=== PATIENT | female | born 2005 ===

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

== ENCOUNTER → 2025-02-16 00:32 | Outpatient (CLI) | payer BC, SELFPAY ==
--- NOTE | 2025-02-16 07:30 | DI.MRI_ITS ---
Exam(s) MR UPPER JOINT RT WO EXAM: MR UPPER JOINT RT WO CLINICAL HISTORY: Evaluate pathology,BICEPS TENDINITIS RT SHOULDER,M75.21. TECHNIQUE: Multiplanar multisequence MRI was performed. COMPARISON: No exams were available for comparison FINDINGS: BONES: There is marrow edema seen in the humeral head anteriorly and posteriorly. There is a linear hypointense signal in the posterior lateral humeral head and and depression best appreciated on the sagittal images (series 8001, image 8). The findings may represent a Hill-Sachs deformity. JOINTS: The acromioclavicular joint is normal. The glenohumeral joint is normal. There is a moderate size shoulder joint effusion. TENDONS: Supraspinatus: Unremarkable. There is an articular surface partial tear of the supraspinatus tendon. Infraspinatus: Unremarkable. Subscapularis: Unremarkable. Teres Minor: Unremarkable. Biceps and [place]: Unremarkable. MUSCLES: Unremarkable. GLENOID LABRUM: Findings suspicious for tear of the anterior inferior labrum. Arthrogram may be considered for further evaluation. SOFT TISSUES: Unremarkable. LIGAMENTS: Unremarkable. OTHER: Subacromial and subdeltoid bursae are unremarkable. IMPRESSION: 1. Findings suspicious for Hill-Sachs deformity of the humeral head with depression of the posterolateral aspect of the humeral head and marrow edema present. 2. Partial articular surface tear of the supraspinatus tendon. 3. Unremarkable appearance of the biceps tendon. 4. Moderate glenohumeral joint effusion. 5. Question of a tear of the anterior inferior labrum. MR arthrogram should be considered for further evaluation. 6. The preliminary [facility] report was reviewed. DATA REPOSITORY:
--- NOTE | 2025-02-16 17:10 | DI.[facility]_ITS ---
PROCEDURE INFORMATION: Exam: MR Right Upper Extremity Joint Without Contrast; Shoulder Exam date and time: 02/16/2025 3:16 PM Age: 19 years old Clinical indication: Pain; Right; Evaluate pathology, biceps tendinitis RT shoulder, m75.21 TECHNIQUE: Imaging protocol: Magnetic resonance imaging of the right upper extremity without contrast. Exam focused on the shoulder. COMPARISON: No relevant prior studies available. FINDINGS: Bones/joints: Moderate right shoulder joint effusion. Small amount of subacromial/subdeltoid fluid. Heterogeneous edema of the lateral right humeral head with posterior right humeral head cortical defect (series 7001, image 8). Glenoid labrum: Unremarkable. No evidence of tear. Supraspinatus tendon: Full-thickness partial width tear of the supraspinatus tendon (series 6001, image 12 and series 8001, image 9). Infraspinatus tendon: Unremarkable. No evidence of tear. Subscapularis tendon: Unremarkable. No evidence of tear. Teres minor tendon: Unremarkable. No evidence of tear. Tendon of biceps brachii: Unremarkable. No evidence of tear. Glenohumeral ligaments: Unremarkable. Soft tissues: Unremarkable. IMPRESSION: 1. Moderate right shoulder joint effusion with heterogeneous edema of the humeral head associated with posterior right humeral head cortical defect. The imaging findings are concerning for prior dislocation with Hill-Sachs deformity. 2. Full-thickness partial with tear of the supraspinatus tendon. Fluid extending to the subacromial/subdeltoid space is likely related to tendon tear. 3. No evidence of biceps tendinopathy. Dictated and Authenticated by: Shashank Mata MD. Orderin Sabas Coello MD
== END ==
LOC: DI 00:32
PROVIDERS: Visit Provider Nurse Practitioner Family
DX: M75.21 Bicipital tendinitis, right shoulder (principal); R93.7 Abnormal findings on diagnostic imaging of other parts of musculoskeletal system
CPT/HCPCS: 73221